=== PATIENT | female | born 1985 | race Caucasian/White ===

== ENCOUNTER 2016-11-28 16:52 | Emergency (ER) | payer OTHER ==
[2016-11-28 19:45] LABS: HEMOGLOBIN 13.3 gm/dl (12.3-15.3); RED BLOOD COUNT 4.1 M/UL (4.00-5.10); WHITE BLOOD COUNT 8.7 K/UL (4.5-11.0)
[2016-11-28 20:33] LABS: BUN/CREATININE RATIO 12 (0-10)
== END 2016-11-28 20:53 | disposition home or self-care (01) ==
LOC: ER1 16:52
PROVIDERS: Physician Assistant
DX: G89.18 Other acute postprocedural pain (principal); M54.2 Cervicalgia; J02.9 Acute pharyngitis, unspecified; E86.0 Dehydration; Z91.040 Latex allergy status; Z79.891 Long term (current) use of opiate analgesic; Z79.899 Other long term (current) drug therapy
CPT/HCPCS: 36415; 70490; 71010; 80053; 83605; 85025; 86140; 87040; 87081; 87880; 96361; 96365; 96375; 99283; J0696; J1885; J2270; J2930; J7050

== ENCOUNTER → 2021-05-19 | Outpatient (CLI) | payer OTHER ==
[~2021-05-19] MED LIST: ABILIFY 5 MG TAB5 MG PO; HYDROCODON-ACE1 EAC2 PO; IBU800 MG PO; LEXAPRO20 MG PO; LYRICA200 MG PO; VENTOLIN HFA 66.7 GM INH; VIVITROL380 MG INJ; ZANAFLEX4 M1 PO
== END ==
LOC: KOH-I 15:19
DX: S82.891A Other fracture of right lower leg, initial encounter for closed fracture (principal)
CPT/HCPCS: 73700

== ENCOUNTER → 2021-05-27 | Day surgery (SDC) | payer OTHER ==
[~2021-05-27] VITALS: Ht 157.5 cm; Wt 89.8 kg
[2021-05-27 07:36] LABS: HEMOGLOBIN 12.9 gm/dl (12.3-15.3); RED BLOOD COUNT 4.02 M/UL (4.00-5.10); WHITE BLOOD COUNT 5.3 K/UL (4.5-11.0)
[2021-05-27 07:39] LABS: BUN/CREATININE RATIO 14 (0-10)
== END | disposition home or self-care (01) ==
LOC: OR 05:57
PROVIDERS: Podiatrist Foot & Ankle Surgery
DX: S82.851A Displaced trimalleolar fracture of right lower leg, initial encounter for closed fracture (principal); S82.831A Other fracture of upper and lower end of right fibula, initial encounter for closed fracture; S93.431A Sprain of tibiofibular ligament of right ankle, initial encounter; S93.491A Sprain of other ligament of right ankle, initial encounter; M25.471 Effusion, right ankle; F32.9 Major depressive disorder, single episode, unspecified; G40.909 Epilepsy, unspecified, not intractable, without status epilepticus; F17.210 Nicotine dependence, cigarettes, uncomplicated; Z79.899 Other long term (current) drug therapy; Z20.822 Contact with and (suspected) exposure to COVID-19; Z98.1 Arthrodesis status; W19.XXXA Unspecified fall, initial encounter
CPT/HCPCS: 73600; 73610; 76000; 80048; 85025; C1713; J0171; J0690; J1100; J1170; J1885; J2001; J2250; J2405; J2704; J2710; J2795; J3010; J3370; J7120

== ENCOUNTER → 2021-06-04 | Outpatient (CLI) | payer OTHER | LOC: KOH-I 14:30 | DX: I82.401 Acute embolism and thrombosis of unspecified deep veins of right lower extremity (principal); M79.651 Pain in right thigh; M79.89 Other specified soft tissue disorders | CPT/HCPCS: 93971 ==

== ENCOUNTER → 2021-06-04 | Outpatient (CLI) | payer OTHER | LOC: KOH-I 13:33 | DX: S82.851D Displaced trimalleolar fracture of right lower leg, subsequent encounter for closed fracture with routine healing (principal) | CPT/HCPCS: 73610 ==

== ENCOUNTER → 2021-06-22 | Outpatient (CLI) | payer OTHER | LOC: KOH-I 13:32 | DX: S82.851D Displaced trimalleolar fracture of right lower leg, subsequent encounter for closed fracture with routine healing (principal) | CPT/HCPCS: 73610; 73630 ==

== ENCOUNTER → 2021-07-13 | Outpatient (CLI) | payer OTHER | LOC: KOH-I 14:01 | DX: S82.851D Displaced trimalleolar fracture of right lower leg, subsequent encounter for closed fracture with routine healing (principal) | CPT/HCPCS: 73610 ==

== ENCOUNTER → 2021-08-06 | Outpatient (CLI) | payer OTHER | LOC: KOH-I 13:44 | DX: S82.451D Displaced comminuted fracture of shaft of right fibula, subsequent encounter for closed fracture with routine healing (principal) | CPT/HCPCS: 73590; 73610 ==

== ENCOUNTER 2022-05-22 20:04 | Emergency (ER) | payer OTHER ==
[2022-05-22] MEDS ORDERED: IBUPROFEN600 MG PO (21:44)
== END 2022-05-22 21:49 | disposition home or self-care (01) ==
LOC: ER1 20:04
DX: J02.9 Acute pharyngitis, unspecified (principal); J30.9 Allergic rhinitis, unspecified; Z20.822 Contact with and (suspected) exposure to COVID-19; F17.210 Nicotine dependence, cigarettes, uncomplicated
CPT/HCPCS: 87081; 87880; 99283; U0002